=== PATIENT | male | born 1990 | race Hispanic/Latino ===

== ENCOUNTER 2017-09-07 20:06 | Emergency (ER) | payer SELFPAY ==
--- NOTE | 2017-09-07 20:50 | RAD ---
LEFT HAND THREE VIEWS: History: 27-year-old male with left fifth finger pain. FINDINGS: There is an irregular probably slightly comminuted fracture of the distal tuft of the fifth finger w ith soft tissue swelling. There is also an irregular incomplete union chronic appearing fracture of the scaphoid bone. There is some sclerosis of the more distal portion of the scaphoid. IMPRESSION: Essentially nondisplaced slightly comminuted tuft fracture of the distal phalanx of the fifth finger . 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 POS: [facility]
--- NOTE | 2017-09-10 11:52 | PRG ---
DATE OF SERVICE: HISTORY: The patient was admitted [facility] overnight and underwent abdominal and chest films which s howed worsening aeration in both lung bases representing possible pulmonary edema, significant free intraperitoneal air is noted. He has had no bleeding, no bowel movements. He does have some flatus . OBJECTIVE: VITAL SIGNS: Temperature is 97.5, pulse 84, respiratory rate 16, blood pressure 131/60. CHEST: Clear. CARDIOVASCULAR: Regular rate and rhythm. ABDOMEN: Diffusely tender. There is a healing surgical scar. LABORATORY DATA: Shows hemoglobin 9.2, hematocrit 28.4. ASSESSMENT: 1. 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 No active bleeding. 2. Status post laparotomy for a small-bowel obstruction. 3. Cardiomyopathy. 4. Chronic obstructive pulmonary disease. RECOMMENDATIONS: 1. Continue to monitor H\T\H daily. 2. Continue Protonix drip for at least another 48 hours. 3. We will sign off.
== END 2017-09-07 21:25 | disposition home or self-care (01) ==
LOC: ERS 20:06
DX: S62.667A Nondisplaced fracture of distal phalanx of left little finger, initial encounter for closed fracture (principal); F17.210 Nicotine dependence, cigarettes, uncomplicated; Z71.6 Tobacco abuse counseling; W23.1XXA Caught, crushed, jammed, or pinched between stationary objects, initial encounter
CPT/HCPCS: 99406

== ENCOUNTER 2019-03-22 15:40 | Emergency (ER) | payer SELFPAY | END 2019-03-22 16:11 | disposition left against medical advice (07) | LOC: ERS 15:40 | DX: Z53.21 Procedure and treatment not carried out due to patient leaving prior to being seen by health care provider (principal) ==